=== PATIENT | female | born 1980 | race Caucasian/White ===

== ENCOUNTER 2017-10-06 02:41 | Emergency (ER) | END 2017-10-06 05:53 | disposition home or self-care (01) ==

== ENCOUNTER 2018-11-07 00:21 | Emergency (ER) | payer OTHER ==
[~2018-11-07] VITALS: Ht 170.2 cm; Wt 88.1 kg
[~2018-11-07 00:21] MED LIST: CEPH-443 PO; IBUP-1542 PO; NAPR-688 PO
[2018-11-07 00:31] VITALS: BP 119/69; PULSE 72; RESP 18; Ht 170.2 cm; Wt 88.1 kg
[2018-11-07] MEDS ORDERED: HYDR25SU23 PR (02:24)
[2018-11-07] MEDS ORDERED: DOCU-144 PO (02:24)
--- NOTE | 2018-11-07 02:42 | ERD ---
ER Documentation Chief Complaint Chief Complaint rectal pain with bowel movement,no bleeding,bump & redness on rectal area HPI 38-year-old female presents to the ED complaining of rectal pain with bowel movement x3 days. She states she has been constipated. She states she feels a bump near her anal area that is painful. Pain is worse when sitting down when having a bowel movement. She denies any diarrhea. Denies any nausea vomiting. Denies abdominal pain. Denies any urinary symptoms. No other complaints. ROS All systems reviewed and are negative except as per history of present illness. Medications Home Meds Active Scripts Hydrocortisone Acetate (Anusol-Hc) 25 Mg Supp.rect, 1 SUPP AR QHS PRN for HEMORROID PAIN/ITCHING, #12 SUPP.RECT Prov:ASHISHIGRIKIANMELI N PA-C 11/07/18 Docusate Sodium* (Colace*) 100 Mg Capsule, 100 MG PO TID, #30 CAP Prov:DISHIGRIKIANMELI N PA-C 11/07/18 Naproxen* (Naproxen*) 500 Mg Tablet, 500 MG PO BID PRN for PAIN, #20 TAB Prov:PATRICIAIVIS DO 10/06/17 Cephalexin* (Keflex*) 500 Mg Capsule, 500 MG PO Q8, #9 CAP Prov:PATRICIAIVIS DO 10/06/17 Ibuprofen* (Motrin*) 600 Mg Tab, 600 MG PO Q8 for PAIN, #20 Prov:TYRELL ROGER. 02/17/15 Allergies Allergies: Coded Allergies: No Known Allergy (Unverified , 10/06/17) PMhx/Soc History of Surgery: Yes (tonsillectomy) Anesthesia Reaction: No Hx Neurological Disorder: No Hx Respiratory Disorders: No Hx Cardiac Disorders: No Hx Psychiatric Problems: No Hx Miscellaneous Medical Probl: No Hx Alcohol Use: No Hx Substance Use: No Hx Tobacco Use: No Physical Exam Vitals Vital Signs Date Temp Pulse Resp B/P (MAP) Pulse Ox O2 O2 Flow FiO2 Time Delivery Rate 11/07/18 97.3 72 18 119/69 99 00:31 (86) Physical Exam Const: No acute distress Head: Atraumatic Eyes: Normal Conjunctiva ENT: Normal External Ears, Nose and Mouth. Neck: Full range of motion. No meningismus. Abd: Soft, non tender, non distended. Normal bowel sounds. + Small tender and fluctuant mass around the anal area, consistent with hemorrhoids. No thrombosed hemorrhoid appreciated. Skin: No petechiae or rashes Neur: Awake and alert Psych: Normal Mood and Affect Procedures/MDM MEDICAL DECISION MAKIN-year-old female presents with signs and symptoms most consistent with hemorrhoids. She has no evidence of thrombosed hemorrhoids, surrounding cellulitis, abscess or deep space tissue infection. Patient will be treated with outpatient stool softeners, as well as topical corticosteroids. Dietary modifications discussed. Recommend follow-up with her primary care provider sometime this week. Strict return precautions were discussed. PRESCRIPTIONS: Colace, Anusol SPECIALIST FOLLOW UP RECOMMENDED: None Patient has been advised to follow up with primary care in 1-2 days. Departure Diagnosis: Primary Impression: Hemorrhoids Hemorrhoid type: unspecified Qualified Codes: K64.9 - Unspecified hemorrhoids Additional Impression: Constipation Constipation type: unspecified constipation type Qualified Codes: K59.00 - Constipation, unspecified Patient Instructions: Treating Constipation Referrals: [facility] YOU HAVE RECEIVED A MEDICAL SCREENING EXAM AND THE RESULTS INDICATE THAT YOU DO NOT HAVE A CONDITION THAT REQUIRES URGENT TREATMENT IN THE EMERGENCY DEPARTMENT. FURTHER EVALUATION AND TREATMENT OF YOUR CONDITION CAN WAIT UNTIL YOU ARE SEEN IN YOUR DOCTORS OFFICE WITHIN THE NEXT 1-2 DAYS. IT IS YOUR RESPONSIBILITY TO MAKE AN APPOINTMENT FOR FOLOW-UP CARE. IF YOU HAVE A PRIMARY DOCTOR --you should call your primary doctor and schedule an appointment IF YOU DO NOT HAVE A PRIMARY DOCTOR YOU CAN CALL OUR PHYSICIAN REFERRAL HOTLINE AT IF YOU CAN NOT AFFORD TO SEE A PHYSICIAN YOU CAN CHOSE FROM THE FOLLOWING [facility] [address] [facility] [address] [facility] [address] [facility] [address] [facility] [address] [facility] [facility]. [address] [facility] YOU HAVE RECEIVED A MEDICAL SCREENING EXAM AND THE RESULTS INDICATE THAT YOU DO NOT HAVE A CONDITION THAT REQUIRES URGENT TREATMENT IN THE EMERGENCY DEPARTMENT. FURTHER EVALUATION AND TREATMENT OF YOUR CONDITION CAN WAIT UNTIL YOU ARE SEEN IN YOUR DOCTORS OFFICE WITHIN THE NEXT 1-2 DAYS. IT IS YOUR RESPONSIBILITY TO MAKE AN APPOINTMENT FOR FOLOW-UP CARE. IF YOU HAVE A PRIMARY DOCTOR --you should call your primary doctor and schedule and appointment IF YOU DO NOT HAVE A PRIMARY DOCTOR YOU CAN CALL OUR PHYSICIAN REFERRAL HOTLINE AT . IF YOU CAN NOT AFFORD TO SEE A PHYSICIAN YOU CAN CHOSE FROM THE FOLLOWING [facility] INSTITUTIONS: [facility] [address] [place] [address] [facility] [address] [place] [address] [facility] [address] [place] [address] Additional Instructions: I also recommend sitz bath, you can use this for about 10 minutes a day, 2 times a day. This will help with your pain. Use of medications I am prescribing you. If symptoms do not improve after 1 week, see your regular doctor for referral to a general surgeon for removal of your hemorrhoids. MELI GODFREY PA-C Nov 07, 2018 02:42
== END 2018-11-07 02:39 | disposition home or self-care (01) ==
LOC: FTE 00:21
DX: K64.9 Unspecified hemorrhoids (principal); K59.00 Constipation, unspecified
CPT/HCPCS: 99283